=== PATIENT | female | born 1975 | race Caucasian/White ===

== ENCOUNTER 2016-11-02 06:18 | Emergency (ER) | payer MEDICAID ==
[~2016-11-02] VITALS: Wt 69.0 kg
--- NOTE | 2016-11-02 09:31 | ERD ---
ER Documentation Chief Complaint Date/Time DATE: 11/02/16 TIME: 09:26 Chief Complaint 1 month post vaginal delivery . today noticed a lump from vagina. HPI This is a 71-year-old female who presents to the emergency department today complaining of a ball in her vagina and some pain in her vagina that started last night. Patient state she has pain with walking. States that she delivered vaginally on October 04. Denies any fevers or chills. Denies any abdominal pain. ROS All systems reviewed and are negative except as per history of present illness. Medications Home Meds Active Scripts Metronidazole* (Flagyl*) 500 Mg Tablet, 500 MG PO BID for 10 Days, TAB Prov:ZONIA IVERSONC 11/02/16 Doxycycline Hyclate* (Doxycycline Hyclate*) 100 Mg Tablet.dr, 100 MG PO BID for 10 Days, TAB Prov:ZONIA IVERSONC 11/02/16 Allergies Allergies: Coded Allergies: No Known Allergy (Verified , 06/06/13) PMhx/Soc History of Surgery: Yes ([email or web address]) Anesthesia Reaction: No Hx Neurological Disorder: No Hx Respiratory Disorders: No Hx Cardiac Disorders: No Hx Psychiatric Problems: No Hx Miscellaneous Medical Probl: No Hx Alcohol Use: No Hx Substance Use: No Hx Tobacco Use: No Smoking Status: Never smoker Physical Exam Vitals Vital Signs Date Time Temp Pulse Resp B/P Pulse Ox O2 Delivery O2 Flow Rate FiO2 11/02/16 06:38 98.5 100 20 150/88 98 Physical Exam Const: NAD Head: Atraumatic Eyes: Normal Conjunctiva ENT: Normal External Ears, Nose and Mouth. Neck: Full range of motion..~ No meningismus. Resp: Clear to auscultation bilaterally Cardio: Regular rate and rhythm, no murmurs Abd: Soft, non tender, non distended. Normal bowel sounds vaginal exam with evidence of gauze that is black and coming out of vagina. Speculum exam cervix visualized. No other evidence of foreign body. Foul -smelling discharge. No cervical motion tenderness Skin: No petechiae or rashes Neur: Awake and alert Psych: Normal Mood and Affect Procedures/MDM This is a 41-year-old female who presents to the emergency department today for complaint of a "ball" and lump from her vagina. On physical exam there was evidence of a gauze that was foul-smelling and had turned black. I did remove the gauze from her vagina. I also further did a speculum exam and did not see evidence of other foreign body. The cervix is visualized however there was foul- smelling purulent discharge. Patient's symptoms at this time consistent with retained foreign body most likely from her vaginal delivery that she had on October 04. I did place a call to the labor stock call here in the emergency department Dr. Martinez recommended that I call the patient's physician Dr. Guerra. I did speak to Dr. Guerra and both he and Dr. Martinez requested that the patient be placed on metronidazole and doxycycline. Dr. Guerra requested to see the patient in his clinic on Saturday. I have explained this to the patient. I again spoke to Dr. Guerra in regards to the patient taking those medications in breast-feeding and he feels that it is safe for the patient to take and would like her to have those 2 medications. At that time he indicated that Dr. Anthony was the physician who performed the vaginal of his patient. Dr. Martinez did indicate that he was willing to come down and evaluate and see the patient further however patient indicated that she just wanted to leave and wanted to follow-up with Dr. Guerra next week. Patient had no cervical motion tenderness on physical exam however given patient 's retained foreign body noted appropriate to treat the patient with the doxycycline and metronidazole. Again patient is afebrile and otherwise well- appearing. She has no abdominal pain on physical exam and I low suspicion for sepsis at this time. The gauze was sent to pathology for further evaluation. At this time the patient is stable for discharge and outpatient management. Patient should follow up with their PCP in the next 1-2 days. They may return to the emergency department sooner for any persistent or worsening of symptoms. Patient understood and agreed with the plan. Departure Diagnosis: Primary Impression: Foreign body in vagina Encounter type: initial encounter Qualified Code: T19.2XXA - Foreign body in vagina, initial encounter Condition: ZONIA Nash PA-C Nov 02, 2016 09:31
[2016-11-02] MEDS ORDERED: DOXY100T20 PO (09:33)
[2016-11-02] MEDS ORDERED: METR500T PO (09:33)
== END 2016-11-02 09:49 | disposition home or self-care (01) ==
LOC: FTE 06:18
DX: T19.2XXA Foreign body in vulva and vagina, initial encounter (principal); X58.XXXA Exposure to other specified factors, initial encounter
CPT/HCPCS: 88302